=== PATIENT | female | born 1975 | race Caucasian/White ===

== ENCOUNTER 2019-03-10 08:19 | Outpatient (CLI) | payer OTHER, SELFPAY ==
--- NOTE | 2019-03-10 08:25 | MR_ITS ---
WS: [id number] MRI HEAD WITH CONTRAST WITH ATTENTION TO THE INTERNAL AUDITORY CANALS TECHNIQUE: Sagittal T1, T2 axial, T2 axial flair, axial susceptibility weighted imaging, axial diffus ion weighted images, and coronal T2 images were obtained. Pre and post T1 axial and post T1 coronal i mages. ADC and FSPGR images. Post gadolinium images with attention to the internal auditory canals. A xial fiesta imaging. CLINICAL INFORMATION: VERTIGO;RECURRENT CHRONIC SINUSITIS COMPARISON: None. FINDINGS: No evidence of restricted diffusion to suggest acute ischemia. Ventricular system and basal cisterns are patent. No suspicious intracranial signal abnormalities. Normal orellana-white differentiation. Irma l posterior fossa. Normal vascular flow voids at the skull base. No extra-axial fluid collections. Pa ranasal sinuses and mastoid air cells are well aerated. Trace mucosal thickening in the ethmoid air c ells. No hemosiderin on the susceptibility weighted images. Proximal 7th and 8th cranial nerves are normal . Normal trigeminal nerve root entry zones. No evidence of enhancing IAC or CP angle mass. Normal opt ic chiasm and pituitary infundibulum. Normal cavernous sinuses and Meckel's cave. No abnormal intracr anial parenchymal enhancement. Normal visualized dural venous sinuses. MR/MR iac's wo/w con* [id number] IMPRESSION: 1. No evidence of restricted diffusion to suggest acute ischemia. 2. Proximal 7th and 8th cranial nerves are normal in appearance. No enhancing IAC or CP angle mass. Normal trigeminal nerve root entry zones. 3. No abnormal intracranial parenchymal enhancement. 4. Paranasal sinuses and mastoid air cells are well aerated. Trace mucosal thi ckening in the ethmoid air cells. No acute sinusitis. 5. No hemosiderin on susceptibly weighted images. 6. No suspicious intracranial signal abnormalities.
== END 2019-03-10 08:20 | disposition home or self-care (01) ==
LOC: RADSHAW 08:22
PROVIDERS: Family Provider Family Medicine; PCP Family Medicine; Visit Provider Family Medicine
DX: J32.9 Chronic sinusitis, unspecified (principal); Z87.898 Personal history of other specified conditions
CPT/HCPCS: 70553; A9579

== ENCOUNTER 2021-10-19 07:25 | Outpatient (CLI) | payer OTHER, SELFPAY ==
--- NOTE | 2021-10-19 07:31 | MM_ITS ---
WS: [id number] SCREENING DIGITAL BREAST TOMOSYNTHESIS MAMMOGRAM WITH CAD HISTORY: SCREENING COMPARISON: 07/07/2014 and 06/11/2014 Bilateral CC and MLO with tomosynthesis and synthetic mammography submitted. Computer aided detection analyzed. Breast composition: The breasts are heterogeneously dense, which may obscure small masses. Lobulated mass measuring 5.8 mm central to the nipple on the CC projection within the LEFT breast. I suspect th is is very close to the 12:00 axis or just posterior to the nipple on the lateral projection. Otherwi se breast is negative. No suspicious calcifications. MM/[place] [id number] IMPRESSION: BI-RADS: 0-Incomplete: Need additional imaging evaluation FOLLOW UP: Need Additional Imaging LEFT breast: Spot compression views (CC and MLO). True ML. Ultrasound to follow if abnormality persists.
== END 2021-10-19 07:26 | disposition home or self-care (01) ==
LOC: RAD 07:29
PROVIDERS: PCP Family Medicine; Visit Provider Family Medicine
DX: Z12.31 Encounter for screening mammogram for malignant neoplasm of breast (principal)
CPT/HCPCS: 77063; 77067

== ENCOUNTER 2021-11-23 08:57 | Outpatient (CLI) | payer OTHER, SELFPAY ==
--- NOTE | 2021-11-23 | US_ITS ---
ADDITIONAL VIEWS LEFT MAMMOGRAM with tomosynthesis. LEFT BREAST ULTRASOUND HISTORY: ABNORMAL MAMMOGRAM COMPARISON: 06/11/2014 and 10/19/2021 LEFT MAMMOGRAM: Spot compression views and true ML with tomosynthesis and sympathetic mammography. The asymmetry becomes much less apparent central to the nipple at compression views are obtained. There is dense fibroglandular tissue. Ultrasound will be performed for further evaluation. LEFT BREAST ULTRASOUND 2-D and color Doppler imaging submitted. There is a hypoechoic nodule in the very posterior LEFT breast at 12:00, 1 cm from the nipple. Hypoechoic nodule measures 9 x 10 x 4 mm. This is probably normal fibroglandular tissue surrounded by fat. This does not have the same shape as the mammographic abnormality. Favor this is probably benign. IMPRESSION: BI-RADS: 3-Probably Benign FOLLOW UP: 6 Month Follow-up LEFT breast ultrasound follow-up in 6 months at 12:00 to reevaluate the hypoechoic nodule. SANDY
--- NOTE | 2021-11-23 09:15 | MM_ITS ---
WS: [id number] ADDITIONAL VIEWS LEFT MAMMOGRAM with tomosynthesis. LEFT BREAST ULTRASOUND HISTORY: ABNORMAL MAMMOGRAM COMPARISON: 06/11/2014 and 10/19/2021 LEFT MAMMOGRAM: Spot compression views and true ML with tomosynthesis and sympathetic mammography. The asymmetry becomes much less apparent central to the nipple at compression views are obtained. The re is dense fibroglandular tissue. Ultrasound will be performed for further evaluation. LEFT BREAST ULTRASOUND 2-D and color Doppler imaging submitted. There is a hypoechoic nodule in the very posterior LEFT breast at 12:00, 1 cm from the nipple. Hypoec hoic nodule measures 9 x 10 x 4 mm. This is probably normal fibroglandular tissue surrounded by fat. This does not have the same shape as the mammographic abnormality. Favor this is probably benign. MM/[place] [id number] IMPRESSION: BI-RADS: 3-Probably Benign FOLLOW UP: 6 Month Follow-up LEFT breast ultrasound follow-up in 6 months at 12:00 to reevaluate the hypoech oic nodule.
== END 2021-11-23 08:58 | disposition home or self-care (01) ==
PROVIDERS: PCP Family Medicine; Visit Provider Family Medicine
DX: R92.8 Other abnormal and inconclusive findings on diagnostic imaging of breast (principal); N63.25 Unspecified lump in the left breast, overlapping quadrants
CPT/HCPCS: 76642; 77061

== ENCOUNTER 2022-05-28 07:52 | Outpatient (CLI) | payer SELFPAY ==
--- NOTE | 2022-05-28 08:17 | US_ITS ---
WS: [id number] ULTRASOUND LEFT BREAST HISTORY: 12:00 hypoechoic NODULE/6 MONTH FOLLOW UP COMPARISON: 11/23/2021 TECHNIQUE: 2-D and Doppler. Hypoechoic nodule along the posterior LEFT chest wall at 12:00, 1 cm from the nipple is unchanged. Th is nodule measures 10 x 6 x 10 mm and is similar to the prior study. This is probably a cyst but due to its posterior location difficult to completely resolve of echoes. No adverse changes. US/US breast LT limited* [id number] IMPRESSION: BI-RADS: 3-Probably Benign FOLLOW-UP: 6 Month Follow-up No change hypoechoic nodule LEFT breast at 12:00. Patient to return in 6 months for annual mammogram and follow-up ultrasound LEFT breast mass at 12:00 to doc ument stability.
== END 2022-05-28 07:53 | disposition home or self-care (01) ==
LOC: RAD 07:54
PROVIDERS: PCP Family Medicine; Visit Provider Family Medicine
DX: N63.25 Unspecified lump in the left breast, overlapping quadrants (principal)
CPT/HCPCS: 76642

== ENCOUNTER 2023-04-16 13:45 | Outpatient (CLI) | payer BC, SELFPAY ==
--- NOTE | 2023-04-16 13:52 | MM_ITS ---
WS: [id number] DIAGNOSTIC BILATERAL DIGITAL BREAST TOMOSYNTHESIS MAMMOGRAPHY WITH CAD LEFT breast ultrasound, limited HISTORY: LT BREAST NODULE COMPARISON: 11/23/2021, 10/19/2021, ultrasound 05/28/2022 and 11/23/2021 TECHNIQUE: Bilateral craniocaudad, mediolateral oblique, and mediolateral views are submitted with to mosynthesis and SM. Spot compression LEFT CC. Computer aided detection utilized. Breast composition: The breasts are heterogeneously dense, which may obscure small masses. Symmetric appearance of the soft tissues. No suspicious mass or calcification. LEFT breast ultrasound, limited. Ultrasound is directed to the posterior LEFT breast at 12:00 as on prior studies. Reidentified is a ovoid hypoechoic nodule in the posterior LEFT breast at 12:00, 1 cm from the nipple . Today nodule measures 7 x 4 x 7 mm and is measuring slightly smaller in size. Nodule is stable sinc e 11/23/2021 without increase in size. IMPRESSION: MM/[place] [id number] BI-RADS: 2-Benign FOLLOW UP: 1 Year Follow-up Return to annual screening mammography. Imaging features of the mass in the pos terior LEFT breast are consistent with a cyst. The cyst has decreased in size s lightly.
== END 2023-04-16 13:46 | disposition home or self-care (01) ==
LOC: RAD 13:46
PROVIDERS: PCP Family Medicine; Visit Provider Family Medicine
DX: N63.25 Unspecified lump in the left breast, overlapping quadrants (principal); R92.333 Mammographic heterogeneous density, bilateral breasts
CPT/HCPCS: 76642; 77062; G0279

== ENCOUNTER 2023-05-02 14:59 | Outpatient (CLI) | payer BC, SELFPAY ==
--- NOTE | 2023-05-02 15:04 | US_ITS ---
WS: [id number] US pelv w/transvag [id number] HISTORY: PELVIC PERINEAL PAIN COMPARISON: 06/19/2016 Uterus: 9.1 cm x 5.0 cm x 5.0 cm. Anteverted slightly enlarged uterus. Very coarse echotexture throughout the myometrium. There is a sl ightly bulbous contour of the uterus. There is poor distinction of the junctional zone between the en dometrium and the myometrium. There are a few cystic areas scattered throughout the myometrium closel y associated with the junctional zone. Previously described fibroid in the posterior uterus is not id entified today. Endometrium: 0.4 cm. Poorly visualized endometrium. The junctional zone is not evident. There are a f ew tiny foci along the junctional zone and a few cystic areas suggesting adenomyosis. Neither ovary is identified. There is a large amount of bowel in the adnexa. No free fluid. IMPRESSION: 1. Mildly globular but heterogeneous appearance of the uterus. No discrete mass identified. Previous ly described fibroid is not identified today. 2. Poor visualization of the endometrium. Junctional zone poorly differentiated with subendometrial cystic spaces.. Due to the heterogeneity extending into the myometrium consider adenomyosis. 3. Neither ovary is identified.
== END 2023-05-02 15:00 | disposition home or self-care (01) ==
LOC: RAD 15:00
PROVIDERS: PCP Family Medicine; Visit Provider Family Medicine
DX: R10.2 Pelvic and perineal pain (principal)
CPT/HCPCS: 76830; 76856

== ENCOUNTER 2024-01-28 15:23 | Observation (INO) | payer BC, SELFPAY ==
[2024-01-20 09:43] LABS: Basophils # 0.1 10^3/uL (0.0-0.1); Basophils % 0.8 %; Eosinophils # 0.1 10^3/uL (0.0-0.8); Eosinophils % 1.4 %; Hematocrit 42.7 % (36-47); Lymphocytes # 1.9 10^3/uL (0.8-4.8); Lymphocytes % 29.4 %; Mean Corpuscular HGB Conc 32.1 g/dL (30-55); Mean Corpuscular Hemoglobin 28.6 pg (27-33); Mean Corpuscular Volume 89.1 fl (85-98); Mean Platelet Volume 9.9 fL (7.4-10.4); Monocytes # 0.7 10^3/uL (0.2-0.9); Monocytes % 11.2 %; Neutrophils % 56.7 %; Nucleated Red Blood Cells % 0 %; Platelet Count 336 10^3/cmm (157-399); Red Blood Count 4.79 10^6/uL (3.85-5.65); Red Cell Distribution Width 13.7 % (12.1-15.1); White Blood Count 6.35 10^3/uL (3.29-11.43)
[2024-01-20 10:06] LABS: Bilirubin Urine Negative (Negative); Blood Urine Negative (Negative); Glucose Urine UA Negative (Normal); Ketones Urine Negative (Negative); Leukocyte Esterase Urine Negative (Negative); Nitrate Urine Negative (Negative); Protein Urine Negative (Negative); Specific Gravity, Urine 1.007 (1.005-1.030); Urine Appearance Clear (CLEAR); Urine Color Yellow (Yellow); Urobilinogen Urine 0.2 mg/dL (Negative); pH Urine 7.5 (5-7)
[2024-01-20 10:07] LABS: Alanine Aminotransferase 23 U/L (0-33); Albumin Level 3.7 g/dL (3.5-5.2); Alkaline Phosphatase 72 U/L (35-105); Anion Gap 10.1 (5-19); Aspartate Amino Transferase 23 U/L (0-32); Blood Urea Nitrogen 8 mg/dL (6-20); Calcium 8.6 mg/dL (8.5-10.5); Carbon Dioxide 28 mmol/L (22-29); Chloride 102 mmol/L (98-107); Globulin 2.8 g/dL (1.3-4.6); Glomerular Filtration Rate 75.9 mL/min (90-130); Glucose 92 mg/dL (65-115); Osmolality Calculated 280 mOsm/kg (285-295); Potassium 4.1 mmol/L (3.5-5.1); Sodium 136 mmol/L (136-145); Total Bilirubin 0.3 mg/dL (0.15-1.2); Total Protein 6.5 g/dL (6.6-8.7)
[2024-01-20 10:12] LABS: Add Urine Microscopic? YES; Bacteria Urine None Seen /hpf; Hyaline Casts Urine 0-4 /lpf; RBC Urine 0-2 /hpf (0-2); Squamous Epithelial Cell Urine 0-5 /hpf (0-5); WBC Urine 0-5 /hpf (0-5)
--- NOTE | 2024-01-20 10:38 | P.ANESASSM_ITS ---
Pre-Anesthetic Assessment Height/Weight: Height 5 ft 6 in Preop Diagnosis: Dysmenorrhea Operation Date: 01/28/24 09:20 Proposed Procedures p Total Vaginal Hysterectomy 34820,R10.2(Not Applicable) - Dwayne Santos MD Was Beta Breanna taken within 24 hours: N/A Was Clonidine taken within 24 hours: N/A Social No alcohol and No tobacco Exam alert, oriented x 3, clear to auscultation bilaterally and regular rate & rhythm Airway Submandibular: within normal limits Cervical ROM: within normal limits Mallampati: Class II Dentition: full Anesthetic Plan ASA status: 2 Other: No prior issues with anesthesia NPO at midnight day prior to surgery History of hypertension on olmesartan Denies any pulmonary issues Labs 01/20/2024 reviewed acceptable for procedure METs greater than 4 Plan for GETA Medications/Allergies Home Medications Medication Instructions Recorded Confirmed Last Taken Type amitriptyline 10 mg tablet 10 mg PO DAILY 06/20/23 01/20/24 01/20/24 History olmesartan 5 mg tablet 5 mg PO DAILY 06/20/23 01/20/24 01/20/24 History ibuprofen 800 mg tablet 800 mg PO TID Pelvic pain #90 tabs 09/19/23 01/20/24 01/18/24 Rx Allergies Allergy/AdvReac Type Severity Reaction Status Date / Time clindamycin AdvReac Mild ADR-Gastrointestinal Verified 01/20/24 07:57 [facility] Family History Mother Heart disease Hypertension Stroke Diabetes Grandfather Heart disease Father Hypertension Brother Hypertension Diabetes Sister Hypertension Denies family history of Colon cancer Ovarian cancer Hyperlipidemia Breast cancer Uterine cancer Thyroid disease Social History Smoking and tobacco/nicotine status: never used tobacco/nicotine Data Anesthesia 01/20/24 09:33 01/20/24 09:33 Short CBC 01/20/24 Range/Units 09:33 WBC 6.35 (3.29-11.43) 10^3/uL Hgb 13.70 (11.27-16.99) g/dL Hct 42.7 (36-47) % MCV 89.1 (85-98) fl Plt Count 336 (157-399) 10^3/cmm Neut % (Auto) 56.7 % Neut # (Auto) 3.60 (1.8-7.7) 10^3/uL BMP 01/20/24 09:33 Sodium 136 Potassium 4.1 Chloride 102 Carbon Dioxide 28 BUN 8 Creatinine 0.8 Glucose 92 Calcium 8.6 Liver Function 01/20/24 Range/Units 09:33 Total Bilirubin 0.3 (0.15-1.2) mg/dL AST 23 (0-32) U/L ALT 23 (0-33) U/L Alkaline Phosphatase 72 (35-105) U/L Albumin 3.7 (3.5-5.2) g/dL Urine 01/20/24 Range/Units 09:36 Urine Color Yellow (Yellow) Urine Appearance Clear (CLEAR) Urine pH 7.5 (5-7) Ur Specific [place] 1.007 (1.005-1.030) Urine Protein Negative (Negative) Urine Glucose (UA) Negative (Normal) Urine Ketones Negative (Negative) Urine Nitrate Negative (Negative) Urine Bilirubin Negative (Negative) Ur Leukocyte Esterase Negative (Negative) Urine RBC 0-2 (0-2) /hpf Urine WBC 0-5 (0-5) /hpf Cardiac Studies: 2 No Data to Display
[2024-01-28] VITALS (16 sets, daily range): BP systolic 112–155; BP diastolic 63–86; PULSE 74–96; RESP 14–18; TEMP 36.5–36.8; O2SAT 97–100; BMI 38.7
[2024-01-28 12:49] LABS: OR HCG Qualitative Urine Negative (Negative)
--- NOTE | 2024-01-28 12:50 | P.ANESUD_ITS ---
Pre-Anesthetic Update Pre-Anesthetic Assessment: Date of Surgery/Procedure: 01/28/24 Preop [place] gnosis: Chronic pelvic pain and Proposed Procedure: Operation Date: 01/28/24 13:10 Proposed Procedures p Total Vaginal Hysterectomy 91326,R10.2(Not Applicable) - Dwayne Santos MD Changes from Pre-Anesthetic Assessment: No changes since last week NPO since yesterday Plan for general anesthesia Last Intake: Intake Last Liquid Date 01/28/24 Last Liquid Time 00:00 Last Solid Date 01/27/24 Last Solid Time 19:30 Vitals: Temperature 98.1 F 01/28/24 11:54 Temperature Source Temporal Artery S can 01/28/24 11:54 Pulse Rate 74 01/28/24 11:54 Pulse Rhythm Regular 01/28/24 12:22 Pulse Strength 3+ Normal 01/28/24 12:22 Respiratory Rate 16 01/28/24 11:54 Blood Pressure 113/78 01/28/24 11:54 Blood Pressure Maria Luz n 89 01/28/24 11:54 Pulse Oximetry 100 01/28/24 11:54 Oxygen Delivery Me thod Room Air 01/28/24 12:22 Cardiac Studies: No Data to Display
[2024-01-28] MEDS: sodium chloride 0.9% 1,000 ML 30 ML IV (12:54)
[2024-01-28] MEDS: scopolamine 1.5 Patch 1 PATCH TRANSDERMA (13:05)
--- NOTE | 2024-01-28 13:25 | W.PM.OPSUD ---
Surgery/Procedure H&P Update DATE OF PROCEDURE: January 28, 2024 DATE H&P PERFORMED: 01/20/24 H&P UPDATE INFORMATION: I have reviewed H&P completed within last 30 days, I have examined patient prior to procedure and No changes to prior documentation PREOP DIAGNOSIS: Chronic pelvic pain and PLANNED PROCEDURE: Operation Date: 01/28/24 13:10 Proposed Procedures p Total Vaginal Hysterectomy 66463,R10.2(Not Applicable) - Dwayne Santos MD
[2024-01-28] MEDS: ceFAZolin 2,000 mg SDV 2000 MG IVP (13:41)
[2024-01-28] MEDS: lidocaine-epi 2% PF 1:200,000 20 mL SDV INJECTION (14:14)
--- NOTE | 2024-01-28 15:24 | P.OP_ITS ---
Operative Report Date of procedure: January 28, 2024 Pre-op diagnosis: Pelvic pain Overactive bladder Post-op diagnosis: same Procedure done: Total vaginal hysterectomy Specimens removed/disposition: Uterus Surgeon: Dwayne Santos MD Estimated blood loss (mL): 350 IV fluids (mL): 1,300 Urine output (mL): 150 Complications: none Procedure: After informed consent and risks, benefits, indications and alternatives reviewed with the patient was taken to the operating room. The patient was placed in dorsal lithotomy position prepped, and draped in the usual sterile fashion. The pre-procedure timeout verifying the correct patient, procedure, site and side, could not requirements was performed and acknowledge by the OR team. A Yang catheter was placed. A Bookwalter vaginal retractor was placed into the vagina in usual manner visualize the cervix. Cervix was grasped with a single tooth tenaculum and circumferentially infiltrated with 2% lidocaine with epinephrine. Then cervix was circumferentially incised with bovie and the bladder was dissected off the pubovesical cervical fascia anteriorly with a sponge stick and Metzenbaum scissors. The anterior peritoneal reflection was identified and the anterior cul-de-sac was entered sharply with Metzenbaum scissors. The same procedure was performed posteriorly and a posterior c olpotomy was made through the posterior cul-de-sac space without difficulty and the posterior blade of the Bookwalter vaginal retractor was advanced posteriorly into the cul-de-sac. At this time, the left and right uterosacral ligaments were isolated and ligated with 0 Vicryl. The LigaSure device was placed over the uterosacral ligaments on either side and was then used in a serial fashion up through the cardinal ligaments bilaterally cross-clamped, cut, and sealed with the LigaSure device. Finally, the uterine arteries were cross-clamped, cut, sealed and ligated with the LigaSure device. Hemostasis was assured. The broad ligaments were then serially clamped, sealed and cut with the LigaSure device on both sides. Excellent hemostasis was visualized. Both cornua were clamped, sealed and cut with the LigaSure device. Then the pedicles were then suture ligated with excellent hemostasis. The uterus was excised and submitted for pathologic evaluation. No other abnormalities were noted in the pelvic cavity. The peritoneum was then closed in a pursestring fashion with 0 Vicryl suture. The vaginal cuff angles were closed with [id number] #0 Vicryl suture on both sides and transfixed with the ipsilateral cardinal and uterosacral ligaments. The remainder of the vaginal cuff was closed with #0 Vicryl in a running locked fashion. At this time, instruments were removed from the vagina at hemostasis assured. Then the Yang catheter was removed and cystoscope was inserted. The bladder was filled with sterile water. Complete evaluation of the bladder mucosa was performed noting no lacerations, dimpling, tears, bleeding of the mucosa or muscular layers. Both ureteral orifices were identified. Prompt excretion of urine from both ureteral orifices was noted. Cystoscope was withdrawn. Yang catheter was then placed yielding clear raina urine. A vaginal packing with Premarin cream was placed and the patient was taken out of dorsal lithotomy position and awakened from the general anesthesia. The patient tolerated the procedure well and was taken to the PACU recovery room in a stable condition. Sponge, lap, needle and instruments counts were correct x3.
--- NOTE | 2024-01-28 15:26 | W.PM.BPON ---
Date of Procedure: 01/28/24 Surgeon: Dwayne Santos MD Glass Cylinder Flanger(s): Procedure(s) performed: Total vaginal hysterectomy Findings of the procedure(s): Enlarged uterus Estimated blood loss: 350 mL Specimen(s) removed: Uterus Post-operative diagnosis: Status post total vaginal hysterectomy
--- NOTE | 2024-01-28 15:47 | SUR.PHASEI ---
15:35 RECEIVED PT FROM OR STAFF. AIRWAY SUCTION WITH SMALL AMOUNT OF MUCOUS RETURN. 15:40 RESPONDS TO VERBAL .ORAL AIRWAY DC'ED . PT ABLE TO COUGH ON COMMAND. DENIES PAIN. VENTILATING WELL. NSR ON MONITOR. SMALL AMOUNT OF BLOOD NOTED ON OB PAD.
--- NOTE | 2024-01-28 16:18 | SUR.PHASEI ---
16:05 WARM BLANKETS APPLIED.
--- NOTE | 2024-01-28 16:25 | ANE.PACU2 ---
Inpatient post-anesthesia follow up: Airway intact: Yes Vital signs: Temperature 97.7 F Pulse Rate 75 Respiratory Rate 16 Blood Pressure 133/73 Pulse Oximetry 100 Oxygen Delivery Me thod Room Air Oxygen Flow Rate 8 Fraction of Inspir ed Oxygen Hydration adequate: Yes Nausea and vomiting: No Pain level: 1 Mental status: Baseline
[2024-01-28] MEDS: docusate sodium 100 mg Capsule PO (18:14)
[2024-01-28] MEDS: dextrose 5%-lactated ringers 1,000 ML 125 ML IV (21:20)
[2024-01-28] MEDS: ibuprofen 800 mg tablet PO (21:20)
[2024-01-28] MEDS: simethicone 80 mg Chew PO (21:20)
[2024-01-29] VITALS: BP 97/56; PULSE 90; RESP 18; TEMP 36.8; O2SAT 96
[2024-01-29 04:48] VITALS: BP 100/55; PULSE 77; RESP 16; TEMP 36.4; O2SAT 96
[2024-01-29 05:06] LABS: Hematocrit 37.7 % (36-47); Mean Corpuscular HGB Conc 31.8 g/dL (30-55); Mean Corpuscular Volume 88.1 fl (85-98); Mean Platelet Volume 10.3 fL (7.4-10.4); Platelet Count 282 10^3/cmm (157-399); Red Blood Count 4.28 10^6/uL (3.85-5.65); Red Cell Distribution Width 13.7 % (12.1-15.1); White Blood Count 14.74 10^3/uL (3.29-11.43)
[2024-01-29] MEDS: docusate sodium 100 mg Capsule PO (08:35)
[2024-01-29] MEDS: oxybutynin chloride XL 5 MG TABLET PO (08:35)
[2024-01-29] MEDS: ibuprofen 800 mg tablet PO (08:36)
[2024-01-29 08:42] VITALS: BP 115/70; PULSE 75; RESP 16; TEMP 36.4; O2SAT 100
--- NOTE | 2024-01-29 14:10 | PM.OBGYDC ---
Discharge Providers MEDICAL SUPERINTENDENT Date of Admission: 01/28/24 15:23 Date of Discharge: 01/29/24 Attending Provider at Admission: Dwayne Santos MD Attending Provider at Discharge: Dwayne Santos MD Primary Care Provider: Judy Taylor MD Reason for Visit Reason for Visit: R10.2 Hospital Course Hospital Course Mrs. Gordon 48-year-old female with a history of chronic pelvic pain and overactive bladder. She was admitted for planned total vaginal hysterectomy. The procedure was performed without complication. Overnight observation was uneventful. She is afebrile and hemodynamically stable postoperative day 1. Tolerating diet well. Ambulating without difficulty. She was counseled regarding pelvic rest for 6 weeks (no sex, no tampons, no vaginal douches). Return to the emergency room if any fever, increased bleeding or pain. She was also counseled regarding heavy lifting limitations to 10 pounds. Physical Exam Narrative: GA: Alert and oriented ?3. HEENT: WNL. Heart: Regular rate and rhythm. Lungs: Clear to auscultation bilaterally. Abdomen: Bowel sounds present, nontender. [employer]: spotting bleeding. Extremities: No edema, no cyanosis, no calves pain. Urinary Catheter Management: Yang: Cath Placed During This Visit: yes, but has since been removed by the nurse Reason for Continuing Indwelling Catheter: Decision to DC Catheter Urinary Catheter Date of Insertion: 01/28/24 Urinary Catheter Time of Insertion: 14:05 Date Urinary Catheter Removed: 01/29/24 Time Urinary Catheter Discontinued: 04:58 History History History 2 Term 1 1 Miscarriages/Ectopic 0 Living Children 2 Discharge Data Studies Completed and Pending Pending at discharge Category Date Time Status Pathology: Surgical [PTH] Routine Pth 01/28/24 15:05 Received Laboratory Results WBC 14.74 10^3/uL (3.29-11.43) H 01/29/24 04:45 RBC 4.28 10^6/uL (3.85-5.65) 01/29/24 04:45 Hgb 12.00 g/dL (11.27-16.99) 01/29/24 04:45 Hct 37.7 % (36-47) 01/29/24 04:45 MCV 88.1 fl (85-98) 01/29/24 04:45 MCH 28.0 pg (27-33) 01/29/24 04:45 MCHC 31.8 g/dL (30-55) 01/29/24 04:45 RDW 13.7 % (12.1-15.1) 01/29/24 04:45 Plt Count 282 10^3/cmm (157-399) 01/29/24 04:45 MPV 10.3 fL (7.4-10.4) 01/29/24 04:45 Neut % (Auto) 56.7 % 01/20/24 09:33 Lymph % (Auto) 29.4 % 01/20/24 09:33 [place] % (Auto) 11.2 % 01/20/24 09:33 Eos % (Auto) 1.4 % 01/20/24 09:33 Baso % (Auto) 0.8 % 01/20/24 09:33 Neut # (Auto) 3.60 10^3/uL (1.8-7.7) 01/20/24 09:33 Lymph # (Auto) 1.9 10^3/uL (0.8-4.8) 01/20/24 09:33 [place] # (Auto) 0.7 10^3/uL (0.2-0.9) 01/20/24 09:33 Eos # (Auto) 0.1 10^3/uL (0.0-0.8) 01/20/24 09:33 Baso # (Auto) 0.1 10^3/uL (0.0-0.1) 01/20/24 09:33 Nucleated RBC % (auto) 0 % 01/20/24 09:33 Nucleated RBCs # 0.0 /100WBC 01/20/24 09:33 Sodium 136 mmol/L (136-145) 01/20/24 09:33 Potassium 4.1 mmol/L (3.5-5.1) 01/20/24 09:33 Chloride 102 mmol/L (98-107) 01/20/24 09:33 Carbon Dioxide 28 mmol/L (22-29) 01/20/24 09:33 Anion Gap 10.1 (5-19) 01/20/24 09:33 BUN 8 mg/dL (6-20) 01/20/24 09:33 Creatinine 0.8 mg/dL (0.5-0.9) 01/20/24 09:33 GFR Calculation 75.9 mL/min (90-130) L 01/20/24 09:33 Glucose 92 mg/dL (65-115) 01/20/24 09:33 Calculated Osmolality 280 mOsm/kg (285-295) L 01/20/24 09:33 Calcium 8.6 mg/dL (8.5-10.5) 01/20/24 09:33 Total Bilirubin 0.3 mg/dL (0.15-1.2) 01/20/24 09:33 AST 23 U/L (0-32) 01/20/24 09:33 ALT 23 U/L (0-33) 01/20/24 09:33 Alkaline Phosphatase 72 U/L (35-105) 01/20/24 09:33 Total Protein 6.5 g/dL (6.6-8.7) L 01/20/24 09:33 Albumin 3.7 g/dL (3.5-5.2) 01/20/24 09:33 Globulin 2.8 g/dL (1.3-4.6) 01/20/24 09:33 Urine Color Yellow (Yellow) 01/20/24 09:36 Urine Appearance Clear (CLEAR) 01/20/24 09:36 Urine pH 7.5 (5-7) 01/20/24 09:36 Ur Specific [place] 1.007 (1.005-1.030) 01/20/24 09:36 Urine Protein Negative (Negative) 01/20/24 09:36 Urine Glucose (UA) Negative (Normal) 01/20/24 09:36 Urine Ketones Negative (Negative) 01/20/24 09:36 Urine Blood Negative (Negative) 01/20/24 09:36 Urine Nitrate Negative (Negative) 01/20/24 09:36 Urine Bilirubin Negative (Negative) 01/20/24 09:36 Urine Urobilinogen 0.2 mg/dL (Negative) 01/20/24 09:36 Ur Leukocyte Esterase Negative (Negative) 01/20/24 09:36 Urine RBC 0-2 /hpf (0-2) 01/20/24 09:36 Urine WBC 0-5 /hpf (0-5) 01/20/24 09:36 Ur Squamous Epith Cells 0-5 /hpf (0-5) 01/20/24 09:36 Amorphous Sediment Not Reportable 01/20/24 09:36 Urine Bacteria None seen /hpf (NONE) 01/20/24 09:36 Hyaline Casts 0-4 /lpf H 01/20/24 09:36 Urine HCG, Qual Negative (Negative) 01/28/24 12:48 Blood Type A Positive 01/28/24 12:35 Rho(D) Type Rh positive 01/28/24 12:35 Antibody Screen Negative 01/28/24 12:35 Vitals Last Vital Signs Temp 97.5 F L 01/29/24 08:42 Pulse 75 01/29/24 08:42 Resp 16 01/29/24 08:42 BP 115/70 01/29/24 08:42 Pulse Ox 100 01/29/24 08:42 O2 Del Method Room Air 01/29/24 08:42 O2 Flow Rate 8 01/28/24 15:45 Results Labs OB ([facility]): Blood Type A Positive 01/28/24 Antibody Screen Negative 01/28/24 Hct 37.7 % (36-47) 01/29/24 Hgb 12.00 g/dL (11.27-16.99) 01/29/24 Rho(D) Type Rh positive 01/28/24 Plt Count 282 10^3/cmm (157-399) 01/29/24 Discharge Plan Discharge Patient Disposition: Home Condition: Stable Prescriptions: New hydrocodone-acetaminophen 5-325 mg tablet 1 tab PO Q4H PRN (Reason: pain) Qty: 30 0RF acetaminophen 325 mg capsule 325 mg PO Q4H PRN (Reason: fever or pain) Qty: 60 0RF docusate sodium [Colace] 100 mg capsule 100 mg PO BID Qty: 30 0RF ibuprofen 800 mg tablet 800 mg PO TID PRN (Reason: pain) Qty: 60 0RF Continued amitriptyline 10 mg tablet 10 mg PO DAILY olmesartan 5 mg tablet 5 mg PO DAILY ibuprofen 800 mg tablet 800 mg PO TID Qty: 90 3RF Discharge Orders: Discharge Order (Routine); Ordered 01/29/24 Ordered By: Dwayne Santos Referrals: Dwayne Santos MD [Physician] - 03/13/24 2:45 pm Andreia Sethi APN, WHNP [Nurse Practitioner] - 02/21/24 8:00 am () Discharge Diet: Usual diet Discharge Activity: Limit activity as instructed Patient Instructions: Acute Wound Care (DC), Opioid Safety (DC), Vaginal Hysterectomy (DC), OB Discharge Report, OB Food/Drug Interaction Guide, Post Anesthesia Care Activity Restrictions/Additional Instructions: 1. Please call [facility] on next working day to make your post-operative appointment in 2 weeks. 2. Please stay home until you come back to the clinic on first post-hospatilization check up. 3. Please follow instructions on your medications CAREFULLY. 4. If you have abdominal incision, do not cover it unless dressing is necessary because of drainage. OK to shower, but avoid bath. Leave steri-strips until they fall off. If they are still on one week after surgery, you may remove them. 5. If you had vaginal surgery or vaginal repair, Dr. Santos may instruct you to take SITZ bath. 6. Yellow, blood tinged odorous vaginal discharge is usually normal after hysterectomy or vaginal surgeries. 7. No SEXUAL INTERCOURSE, tampons, or douches until you are completely released from the post-operative care. 8. Avoid constipation by eating right and maybe using some Metamucil or Milk of Magnesia. 9. All prescription refills are given during the working hours. Please do no wait till it runs out. Call the clinic at [phone] before your medication runs out. The clinic will get in touch with your doctor to prescribe medications if necessary. 10. Please remain within 40 mile radius from our hospital because emergencies do happen now and then during the post-operative period. 11. If you have stairs at home, take one step at a time slowly and minimize the number of trips. It helps to stay in one floor for the next few days. No lifting except what you can lift by one hand until you are released from the post-operative care. 12. Driving is discouraged until you are well healed. It may be 3-4 weeks before you feel strong enough to drive. You should be able to turn and look through the rear window without pain and you should be able to push the brake pedal very hard without pain before you drive. No fast rules, but SAFETY should be your primary concern. DO NOT drive if you are on sedating medications such as narcotics. 13. Call the clinic (during working hours) to make urgent appointment or go to the Emergency room, if any of the following occurs: i. Vaginal bleeding becomes heavy, more than a period. ii. Incision becomes red and sore, or drains pus. iii. Your TEMPERATURE is over 100.4F or you have chill. iv. IV site becomes red and swollen (a little ``knot?? is usually OK) v. Persistent nausea and vomiting vi. Persistent constipation or diarrhea vii. Rash or allergic reaction to medications. Discharge Attestations MEDICAL SUPERINTENDENT Time Spent in Discharge Care*: greater than 30 min Coding Level of Care Code Acute Code for Chg Fwd
[2024-01-29 15:26] VITALS: BP 133/73; PULSE 75; RESP 16; TEMP 36.5; O2SAT 100
== END 2024-01-29 15:27 | disposition home or self-care (01) ==
LOC: OBGYN 15:24
PROVIDERS: Student in an Organized Health Care Education/Training Program; Admitting Provider Obstetrics & Gynecology; PCP Family Medicine; Visit Provider Obstetrics & Gynecology
PROC: (CPT 58260; principal; 2024-01-28 13:10)
DX: G89.29 Other chronic pain (principal); R10.2 Pelvic and perineal pain; N32.81 Overactive bladder; N72 Inflammatory disease of cervix uteri; I10 Essential (primary) hypertension
CPT/HCPCS: 58260; 36415; 80053; 81001; 81025; 85025; 85027; 86850; 86900; 88307; G0378; J0690; J1100; J1171; J1200; J1885; J2250; J2405; J2704; J3010; J3490; J7030; J7121

== ENCOUNTER 2024-05-07 09:14 | Outpatient (CLI) | payer BC, SELFPAY ==
--- NOTE | 2024-05-07 09:22 | MM_ITS ---
WS: [id number] BILATERAL SCREENING DIGITAL TOMOSYNTHESIS MAMMOGRAM WITH CAD HISTORY: SCREEN COMPARISON: 04/16/2023, 11/23/2021 Bilateral CC and MLO views with tomosynthesis and synthetic mammography submitted. Computer aided detection analyzed. Breast composition: The breasts are heterogeneously dense, which may obscure small masses. No suspicious masses, microcalcifications or architectural distortion. MM/MM scr BI tomosynthesis [id number] IMPRESSION: BI-RADS: 2 - Benign FOLLOW UP: 1 Year Follow-up
== END 2024-05-07 09:15 | disposition home or self-care (01) ==
LOC: RAD 09:15
PROVIDERS: PCP Family Medicine; Visit Provider Family Medicine
DX: Z12.31 Encounter for screening mammogram for malignant neoplasm of breast (principal); R92.333 Mammographic heterogeneous density, bilateral breasts
CPT/HCPCS: 77063; 77067

== ENCOUNTER 2024-06-02 06:31 | Day surgery (SDC) | payer BC, OTHER, SELFPAY ==
[2024-06-02 06:58] VITALS: BP 133/87; PULSE 82; RESP 18; TEMP 36.1; O2SAT 100; BMI 37.8
--- NOTE | 2024-06-02 07:06 | W.PM.OPSUD ---
Surgery/Procedure H&P Update DATE OF PROCEDURE: June 02, 2024 DATE H&P PERFORMED: 05/07/24 H&P UPDATE INFORMATION: I have reviewed H&P completed within last 30 days, I have examined patient prior to procedure and No changes to prior documentation PLANNED PROCEDURE: Operation Date: 06/02/24 07:30 Proposed Procedures p Colonoscopy 98946 G0121 Z12.11(Not Applicable) - Pranav Tavera MD
[2024-06-02] MEDS: sodium chloride 0.9% 1,000 ML 30 ML IV (07:09)
--- NOTE | 2024-06-02 07:10 | ANES.PREANE2 ---
Pre-Anesthetic Assessment Height/Weight: Height 1.68 m Weight 106.141 kg Temp Pulse Resp BP Pulse Ox O2 Del Method 97 F L 82 18 133/87 100 Room Air 06/02/24 06:58 06/02/24 06:58 06/02/24 06:58 06/02/24 06:58 06/02/24 06:58 06/02/24 06:58 Preop Diagnosis: Screening Operation Date: 06/02/24 07:30 Proposed Procedures p Colonoscopy 06795 G0121 Z12.11(Not Applicable) - Pranav Tavera MD Was Beta Breanna taken within 24 hours: N/A Was Clonidine taken within 24 hours: N/A Last intake: Intake Last Liquid Date 06/01/24 Last Liquid Time 22:30 Last Solid Date 05/31/24 Last Solid Time 19:00 Social No alcohol and No tobacco Exam alert, oriented x 3, clear to auscultation bilaterally and regular rate & rhythm Airway Submandibular: within normal limits Cervical ROM: within normal limits Mallampati: Class II Dentition: full (Poor dentition) History/ROS No significant history except as noted and No significant complaints Pulmonary None reported CV/HEM Hypertension None reported Hepatic None reported GI None reported Metabolic Morbid Obesity [facility] None reported Neuropsych None reported Anesthetic Plan ASA status: 2 Anesthesia: Anesthesia Evaluation and MAC Risk of > 500 ml blood loss (7ml/kg in children): No Medications/Allergies Home Medications ?Medication ?Instructions ?Recorded ?Confirmed ?Last Taken ?Type amitriptyline 10 mg tablet 10 mg PO DAILY 06/20/23 05/27/24 05/31/24 History olmesartan 5 mg tablet 5 mg PO DAILY 06/20/23 05/27/24 06/01/24 History tirzepatide (weight loss) 2.5 2.5 mg SUBCUT .Q7DAYS 05/27/24 05/27/24 05/25/24 History mg/0.5 mL subcutaneous pen injector Allergies Allergy/AdvReac Type Severity Reaction Status Date / Time clindamycin AdvReac Mild ADR-Gastrointestinal Verified 05/07/24 08:38 Upset [facility] Anesthesia Medical History No pertinent past medical history neghx: dm, thyroid, dvt/pe PCP: [facility] [place] Surgical History H/O total vaginal hysterectomy (~01/28/24) TVH performed by Tom at [facility] for pelvic pain. Benign path-- adenomyosis, fibroid History of endometrial ablation H/O tubal ligation History of cholecystectomy History of tonsillectomy and adenoidectomy Family History Mother Heart disease Hypertension Stroke Diabetes Grandfather Heart disease Father Hypertension Brother Hypertension Diabetes Sister Hypertension Denies family history of Colon cancer Ovarian cancer Hyperlipidemia Breast cancer Uterine cancer Thyroid disease Social History Smoking and tobacco/nicotine status: never used tobacco/nicotine Data Anesthesia Cardiac Studies: No Data to Display
[2024-06-02 08:02] VITALS: BP 107/65; PULSE 86; RESP 18; TEMP 36.3; O2SAT 100
--- NOTE | 2024-06-02 12:31 | ANE.PACU2 ---
Inpatient post-anesthesia follow up: Vital signs: Temperature 97.3 F Pulse Rate 86 Respiratory Rate 18 Blood Pressure 107/65 Pulse Oximetry 100 Oxygen Delivery Me thod Room Air Oxygen Flow Rate Fraction of Inspir ed Oxygen Hydration adequate: Yes Nausea and vomiting: No Pain level: 1 Mental status: Baseline
== END 2024-06-02 08:35 | disposition home or self-care (01) ==
PROVIDERS: PCP Family Medicine; Visit Provider Student in an Organized Health Care Education/Training Program
PROC: 0DJD8ZZ Inspection of Lower Intestinal Tract, Via Natural or Artificial Opening Endoscopic (ICD-10-PCS; CPT 45378; principal; 2024-06-02 07:30)
DX: Z12.11 Encounter for screening for malignant neoplasm of colon (principal); K52.9 Noninfective gastroenteritis and colitis, unspecified; D12.2 Benign neoplasm of ascending colon; I10 Essential (primary) hypertension; E66.01 Morbid (severe) obesity due to excess calories; Z79.899 Other long term (current) drug therapy; Z68.37 Body mass index [BMI] 37.0-37.9, adult
CPT/HCPCS: 45380; 88305; J2704; J7030